=== PATIENT | female | born 1930 | race Caucasian/White ===

== ENCOUNTER 2021-01-04 09:33 | Inpatient (IN) ==
--- NOTE | 2021-01-04 09:45 | Emergency Department Note ---
Neuro HPI General Chief Complaint: Neuro Symptoms/Deficit Stated Complaint: aphasia and burping Time Seen by Provider: 01/04/21 09:36 Source: patient Mode of arrival: wheelchair Limitations: language barrier History of Present Illness HPI Narrative: 89-year-old female presents from [facility] [place] assisted living facility via wheelchair chief complaint of difficulty speaking. Patient had difficulty speaking for the last 2 days actually per the patient's daughter who is here at the bedside. The patient noticed it 2 days ago and called the primary doctor who is not able to get the patient [facility] Patient had previous strokes and TIA before. She is on any blood thinners. She not had any fevers chills chest pain shortness of breath no vomiting no diarrhea. No known trauma. Patient has been vaccinated against COVID-19. Patient is having word finding difficulty and mildly slurred speech. No other deficits noted. Related Data Home Medications Medication Instructions Recorded Confirmed cetirizine [Zyrtec] 10 mg PO DAILY 07/01/15 11/30/20 aspirin 81 mg tablet 81 mg PO QDAY 08/22/20 11/30/20 omeprazole 20 mg capsule,delayed 20 mg PO ONCE PRN cap 08/22/20 11/30/20 release fluoxetine 20 mg capsule 40 mg PO QDAY cap 10/05/20 11/30/20 vitamins A,C,M-edfo-wgpoey 14,320 1 cap PO BID 10/05/20 11/30/20 unit-226 mg-200 unit capsule montelukast 10 mg tablet 10 mg PO QHS 10/19/20 11/30/20 acetaminophen 500 mg tablet 500 mg PO Q6H PRN tab 11/30/20 diclofenac sodium 1 % topical gel 2 g TOPICAL QID PRN 11/30/20 11/30/20 nystatin 100,000 unit/gram topical 1 applic TOPICAL BID PRN 11/30/20 11/30/20 powder propranolol 20 mg tablet 20 mg PO HS tab 11/30/20 11/30/20 Previous Rx's Medication Instructions Recorded colchicine 0.6 mg tablet 0.6 mg PO ONCE PRN #9 tab 09/20/20 tramadol 50 mg tablet 50 mg PO QDAY PRN #20 tab 09/21/20 losartan 100 mg tablet 100 mg PO QDAY #90 tab 10/03/20 oxybutynin chloride 5 mg tablet 5 mg PO BID #60 tab 11/16/20 gabapentin 100 mg capsule 200 mg PO QHS #60 cap 11/21/20 allopurinol 300 mg tablet 150 mg PO QDAY #45 tab 12/25/20 nitrofurantoin macrocrystal 100 mg 100 mg PO BID 5 Days #10 cap 12/27/20 capsule Allergies Allergy/AdvReac Type Severity Reaction Status Date / Time cephalexin [From Keflex] Allergy Unknown Facial Verified 11/30/20 09:38 edema enalaprilat [From Vasotec] Allergy Unknown Facial Verified 11/30/20 09:38 edema morphine Allergy Unknown Itching Verified 11/30/20 09:38 with rash nifedipine [From Procardia] Allergy Unknown General Verified 11/30/20 09:38 edema Penicillins Allergy Unknown Facial Verified 11/30/20 09:38 edema sulfamethoxazole Allergy Unknown Throat Verified 11/30/20 09:38 [From Septra] edema trimethoprim [From Septra] Allergy Unknown Throat Verified 11/30/20 09:38 edema vancomycin Allergy Unknown Redneck Verified 11/30/20 09:38 syndrome Review of Systems ROS ROS Narrative: Narrative: All systems ED: reviewed and negative except as stated. Constitutional: Denies fever, chills and sweats Eyes: Denies vision change ENT ED: Denies throat pain and congestion Cardiovascular: Denies chest pain Respiratory: Denies shortness of breath and cough Gastrointestinal: Denies abdominal pain, vomiting and diarrhea Musculoskeletal: Denies back pain and joint pain Integumentary: Denies rash Neurological: Reports as per HPI Psychiatric: Denies anxiety, suicidal thoughts and homicidal thoughts Endocrine: Denies polydipsia and polyuria Hematological/Lymphatic: Denies easy bleeding and easy bruising PFSH Narrative Patient History Narrative: Narrative: Medical/Surgical/Family History All Active Problems (Updated 01/04/21 @ 13:15 by Jairon Ma MD) Anemia (Chronic) Postoperative pain of extremity (Chronic) Essential tremor (Chronic) Hypertension (Chronic) Arthritis of neck (Chronic) Arthritis of low back (Chronic) Gout (Chronic) Asthma (Chronic) RLS (restless legs syndrome) (Chronic) Stress incontinence (Chronic) Depression (Chronic) History of TIA (transient ischemic attack) (Chronic) Gouty tophus (Chronic) Body mass index between 30-39, adult (Chronic) Neuropathy (Chronic) Essential hypertension (Chronic) Osteopenia (Chronic) Urinary incontinence (Chronic) Recurrent falls (Chronic) Difficulty swallowing (Chronic) Pain, joint, shoulder, left (Chronic) Impacted cerumen of both ears (Chronic) Frail elderly (Chronic) Adhesive capsulitis of left shoulder (Chronic) Anxiety with depression (Chronic) Lung disease (Chronic) Multiple food allergies (Chronic) Seasonal allergies (Chronic) Eosinophilia (Acute) CKD stage G3b/A1, GFR 30-44 and albumin creatinine ratio <30 mg/g (Chronic) Left-sided weakness (Chronic) Expressive aphasia (Acute) Dehydration (Acute) UTI (urinary tract infection) (Acute) Medical History Adhesive capsulitis of left shoulder Anemia Anxiety with depression Arthritis of low back Arthritis of neck Asthma Body mass index between 30-39, adult Depression Difficulty swallowing Essential hypertension Essential tremor Frail elderly Gastroenteritis Gout Gouty tophus History of TIA (transient ischemic attack) X3 with mild left-sided motor deficit Hypertension Impacted cerumen of both ears Left-sided weakness d/t TIA hx UE/LE Lung disease Multiple food allergies Neuropathy Osteopenia Pain, joint, shoulder, left Postoperative pain of extremity Recurrent falls RLS (restless legs syndrome) Seasonal allergies Stress incontinence Urinary incontinence Urinary tract infection Surgical History History of basal cell carcinoma (BCC) excision (~2008) L-side nose History of bladder suspension procedure 1968 & 1996 History of carpal tunnel surgery of left wrist (~2002) History of cataract surgery (~2002) History of eye surgery (~2017) R-Eye Iris peel History of foot surgery (~2012) Fracture 4 toes R-foot History of gastric stapling (~1979) History of hand surgery (~2017) R-Index Finger Torus History of hernia surgery History of hysterectomy (~1968) History of laminectomy (~1992) History of left knee replacement (~2003) History of removal of cyst (~2008) Synovial cyst R-wrist History of right shoulder replacement (~1998) History of shoulder surgery (~2015) L-shoulder Delta Xtend History of surgery (~2000) Gall Bladder/[place] wrap stomach History of tonsillectomy (~1979) History of total right knee replacement (~2011) History of tubal ligation (~7) History of vein stripping (~1967) Family History Other No pertinent family history Social History Smoking Status: Never smoker Alcohol Intake Frequency: a few times a month Substance Use: does not use Exam Narrative Narrative: Vital Signs reviewed. Constitutional: Awake alert no acute distress well-nourished well-developed Head: Normocephalic, atraumatic Eyes: PERRLA, EOMI, no conjunctivitis Ear: Normal canals and TM's Oropharynx: moist oral mucosa, no edema, no erythema, no exudate Neck: Supple, no lymphadenopathy, no JVD Lungs: Breathing unlabored, lungs clear Cardiac: Regular rate and rhythm, normal distal pulses, GI: Soft nontender nondistended no guarding no rebound Musculoskeletal: No tenderness, no deformities, no edema, full range of motion Back: no CVA or midline tenderness Neuro: Awake alert, speech mild word finding difficulty, speech is intelligible and slow and very deliberate, moves all extremities, nihss = 2 Psychiatric: Normal mood and affect Skin: Warm dry no rash, cap refill less than 2 seconds General Limitations: language barrier Course Consultations Consultation #1: CT head results discussed with radiologist Dr. Ferro showing no acute intracranial process. Time: 09:49 Consultation #2: As discussed with neurologist, Dr. Chery, who recommended an MRI to see the patient as the family had an acute stroke or whether this could be a manifestation from her previous stroke that is brought on by metabolic derangement or urinary tract infection. Time: 13:40 Consultation #3: Case discussed with hospitalist, Dr. Troncoso who agrees admit patient. Time: 14:58 Vital Signs Vital signs: Vital Signs Temperature 98.2 F 01/04/21 09:34 Pulse Rate 78 01/04/21 09:34 Respiratory Rate 16 01/04/21 09:34 Blood Pressure 114/50 01/04/21 09:34 Pulse Oximetry (%) 91 01/04/21 09:34 Temperature 98.2 F 01/04/21 14:22 Pulse Rate 64 01/04/21 14:22 Respiratory Rate 19 01/04/21 14:22 Blood Pressure 118/72 01/04/21 14:22 Pulse Oximetry (%) 97 01/04/21 14:22 MDM MDM Narrative Medical decision making narrative: 89-year female presents with expressive aphasia mild dysarthria present for 2 days. Patient is out of the window for any thrombolytics. CT brain shows no acute intracranial process. Patient has prior TIA/stroke. BC is unremarkable. CMP notable for BUN 29 creatinine 1.2 patient just any a component of dehydration fibrillation. Patient recently diagnosed with UTI and urinalysis shows that she does still have a urinary tract infection. With X presence of aphasia and mild dysarthria presentation consistent with stroke. Symptoms have been present for 2 days and as patient is not a candidate for any thrombolytics or acute endovascular intervention. Case discussed with neurologist who recommended an MRI of the brain to see if there is an acute stroke. If there is not an acute stroke then symptoms may be related to metabolic derangement and/or UTI manifesting with neurologic symptoms. Case discussed with Dr. Troncoso hospitalist who agrees to admit flavia ent. Differential Diagnosis Differential Diagnosis: Stroke, intracranial lesion, metabolic arrangement, UTI Lab Data Result diagrams: 01/04/21 09:51 01/04/21 09:51 Labs: Lab Results 01/04/21 01/04/21 01/04/21 Range/Units 09:51 09:51 09:51 WBC 6.6 (4.5-11.0) K/mcL RBC 3.62 (3.59-5.38) M/mcL Hgb 11.7 (11.2-15.7) g/dL Hct 35.4 (34.1-44.9) % MCV 97.8 (80.0-100.0) fL MCH 32.3 (26.0-34.0) pg MCHC 33.1 (31.0-36.0) g/dL RDW 13.4 (11.5-14.5) % Plt Count 189 (140-440) K/mcL MPV 10.0 (7.4-10.4) fL Neut % (Auto) 56.8 (38.0-78.0) % Lymph % (Auto) 23.2 (15.5-49.0) % Arthur % (Auto) 11.9 (1.0-12.0) % Eos % (Auto) 7.0 (0.0-7.0) % Baso % (Auto) 1.1 (0.0-2.0) % Lymph # (Auto) 1.52 (1.50-4.80) K/mcL Arthur # (Auto) 0.78 (0.10-0.90) K/mcL Eos # (Auto) 0.46 (0.00-0.70) K/mcL Baso # (Auto) 0.07 (0.00-0.30) K/mcL Absolute Neutrophils 3.72 (1.80-8.00) K/mcL POC PT 12.2 (11.9-14.5) sec PT 13.5 (11.9-14.5) sec POC INR 1.0 (0.8-1.2) INR 1.0 (0.9-1.1) APTT 27.8 (20.0-37.0) sec Sodium 135 (133-145) mmol/L Potassium 5.0 (3.3-5.1) mmol/L Chloride 101 (96-108) mmol/L Carbon Dioxide 25 (22-30) mmol/L Anion Gap 9.0 (8.0-16.0) BUN 29 H (8-23) mg/dL Creatinine 1.2 H (0.6-1.1) mg/dL POC Creatinine 1.3 H (0.6-1.2) mg/dL GFR Calculation 40 Glucose 82 (70-105) mg/dL Calcium 8.9 (8.6-10.4) mg/dL Total Bilirubin 0.3 (0.1-1.0) mg/dL AST 25 (<32) U/L ALT 15 (<40) U/L Alkaline Phosphatase 117 (39-117) U/L Troponin T (<0.03) ng/mL Total Protein 6.6 (5.9-8.4) gm/dL Albumin 3.6 (3.2-5.2) gm/dL Globulin 3.0 (2.2-3.7) gm/dL Albumin/Globulin Ratio 1.2 (1.0-2.3) Urine Color Urine Appearance (Clear) Urine pH (5.0-9.0) Ur Specific [place] (1.000-1.035) Urine Protein (Negative) mg/dL Urine Glucose (UA) (Negative) mg/dL Urine Ketones (Negative) mg/dL Urine Occult Blood (Negative) mg/dL Urine Nitrate (Negative) Urine Bilirubin (Negative) mg/dL Urine Urobilinogen mg/dL Ur Leukocyte Esterase (Negative) /ug Urine RBC (0-3) /hpf Urine WBC (0-4) /hpf Ur Squamous Epith Cells (0-4) /hpf Urine Bacteria (0) /hpf Ur Culture Indicated? 01/04/21 01/04/21 Range/Units 09:51 11:53 WBC (4.5-11.0) K/mcL RBC (3.59-5.38) M/mcL Hgb (11.2-15.7) g/dL Hct (34.1-44.9) % MCV (80.0-100.0) fL MCH (26.0-34.0) pg MCHC (31.0-36.0) g/dL RDW (11.5-14.5) % Plt Count (140-440) K/mcL MPV (7.4-10.4) fL Neut % (Auto) (38.0-78.0) % Lymph % (Auto) (15.5-49.0) % Arthur % (Auto) (1.0-12.0) % Eos % (Auto) (0.0-7.0) % Baso % (Auto) (0.0-2.0) % Lymph # (Auto) (1.50-4.80) K/mcL Arthur # (Auto) (0.10-0.90) K/mcL Eos # (Auto) (0.00-0.70) K/mcL Baso # (Auto) (0.00-0.30) K/mcL Absolute Neutrophils (1.80-8.00) K/mcL POC PT (11.9-14.5) sec PT (11.9-14.5) sec POC INR (0.8-1.2) INR (0.9-1.1) APTT (20.0-37.0) sec Sodium (133-145) mmol/L Potassium (3.3-5.1) mmol/L Chloride (96-108) mmol/L Carbon Dioxide (22-30) mmol/L Anion Gap (8.0-16.0) BUN (8-23) mg/dL Creatinine (0.6-1.1) mg/dL POC Creatinine (0.6-1.2) mg/dL GFR Calculation Glucose (70-105) mg/dL Calcium (8.6-10.4) mg/dL Total Bilirubin (0.1-1.0) mg/dL AST (<32) U/L ALT (<40) U/L Alkaline Phosphatase (39-117) U/L Troponin T < 0.01 (<0.03) ng/mL Total Protein (5.9-8.4) gm/dL Albumin (3.2-5.2) gm/dL Globulin (2.2-3.7) gm/dL Albumin/Globulin Ratio (1.0-2.3) Urine Color Yellow Urine Appearance Hazy A (Clear) Urine pH 6.0 (5.0-9.0) Ur Specific [place] 1.009 (1.000-1.035) Urine Protein Negative (Negative) mg/dL Urine Glucose (UA) Negative (Negative) mg/dL Urine Ketones Negative (Negative) mg/dL Urine Occult Blood Negative (Negative) mg/dL Urine Nitrate Pos A (Negative) Urine Bilirubin Negative (Negative) mg/dL Urine Urobilinogen Negative mg/dL Ur Leukocyte Esterase 500 A (Negative) /ug Urine RBC 2 (0-3) /hpf Urine WBC 88 H (0-4) /hpf Ur Squamous Epith Cells 0 (0-4) /hpf Urine Bacteria Few A (0) /hpf Ur Culture Indicated? yes EKG Data EKG #1: EKG attestation: Yes I reviewed and interpreted this EKG. and Yes There are no EKG findings of acute coronary syndrome EKG results narrative: EKG performed at 9:46 AM shows sinus rhythm rate of 71 normal axis normal intervals no ectopy no acute ST changes Discharge Plan Patient/Caregiver Discharge Instructions Pt seen by INFECTION CONTROL NURSE/PA only: No Clinical Impression: Expressive aphasia, Dehydration, UTI (urinary tract infection) Patient Disposition: Xfer As Inpt ([facility]) Condition: Fair Follow up with: Tramaine Del Angel MD [Primary Care Provider] - Prescriptions: No Action colchicine [Colcrys] 0.6 mg tablet 0.6 mg PO ONCE PRN (Reason: gout flare) Qty: 9 RF: 1 tramadol 50 mg tablet 50 mg PO QDAY PRN (Reason: pain) Qty: 20 RF: 0 losartan 100 mg tablet 100 mg PO QDAY Qty: 90 RF: 0 oxybutynin chloride 5 mg tablet 5 mg PO BID Qty: 60 RF: 2 gabapentin 100 mg capsule 200 mg PO QHS Qty: 60 RF: 1 allopurinol 300 mg tablet 150 mg PO QDAY Qty: 45 RF: 0 nitrofurantoin macrocrystal 100 mg capsule 100 mg PO BID 5 Days Qty: 10 RF: 0 nystatin 100,000 unit/gram powder 1 applic topical BID PRNRF: 0 acetaminophen [Tylenol Extra Strength] 500 mg tablet 500 mg PO Q6H PRN (Reason: fever or pain) RF: 0 diclofenac sodium 1 % gel 2 g topical QID PRNRF: 0 montelukast 10 mg tablet 10 mg PO QHS RF: 0 aspirin 81 mg tablet 81 mg PO QDAY RF: 0 omeprazole 20 mg capsule,delayed release(DR/EC) 20 mg PO ONCE PRNRF: 0 fluoxetine 20 mg capsule 40 mg PO QDAY RF: 0 PreserVision AREDS 14,320-226-200 [id number]-[id number] capsule 1 cap PO BID RF: 0 propranolol 20 mg tablet 20 mg PO HS RF: 0 cetirizine [Zyrtec] 10 MG capsule 10 mg PO DAILY RF: 0
--- NOTE | 2021-01-04 09:57 | Cat Scan Report ---
History: Acute stroke symptoms with aphasia TECHNIQUE: The brain was imaged without contrast in axial plane at 2.5 mm intervals. Radiation exposure was limited using dose reduction technology. FINDINGS: There is no hemorrhage. No infarct is detected. There are age-related degenerative changes with patchy areas of decreased attenuation in the white matter in the frontal and parietal lobes. These have progressed since the time of the prior brain MRI done on 01/02/15. There is mild atrophy, most apparent in the frontal and temporal lobes. There are small physiologic calcifications in the globus pallidus bilaterally. There are also coarse calcifications along the free edge of the tentorium posterior and lateral to the midbrain. These are chronic stable findings. There are calcified plaques in the vertebral arteries and carotid arteries at the skull base bilaterally. The right maxillary sinus has become opacified. The inspissated material within the sinus contains some calcium. This is new since the prior head CT done on 07/01/15 and probably relates to chronic sinusitis or polyposis. IMPRESSION: Age-related degenerative changes in the brain and no acute abnormality Dr. Ma was called with report Interpreted and Authenticated by: Fabio Ferro 01/04/21
[2021-01-04 10:10] LABS: POC Pro Time 12.2 sec (11.9-14.5)
[2021-01-04 10:11] LABS: POC Creatinine 1.3 mg/dL (0.6-1.2)
[2021-01-04 10:50] LABS: Basophils # (Auto) 0.07 K/mcL (0.00-0.30); Basophils % (Auto) 1.1 % (0.0-2.0); Eosinophils # (Auto) 0.46 K/mcL (0.00-0.70); Hematocrit 35.4 % (34.1-44.9); Hemoglobin 11.7 g/dL (11.2-15.7); Lymphocytes # (Auto) 1.52 K/mcL (1.50-4.80); Lymphocytes % (Auto) 23.2 % (15.5-49.0); Mean Cell Volume 97.8 fL (80.0-100.0); Mean Corpuscular HGB Conc 33.1 g/dL (31.0-36.0); Monocytes # (Auto) 0.78 K/mcL (0.10-0.90); Monocytes % (Auto) 11.9 % (1.0-12.0); Neutrophils % (Auto) 56.8 % (38.0-78.0); Platelet Count 189 K/mcL (140-440); RBC 3.62 M/mcL (3.59-5.38); Red Cell Distribution Width 13.4 % (11.5-14.5); WBC 6.6 K/mcL (4.5-11.0)
[2021-01-04 11:13] LABS: ALT/SGPT 15 U/L (<40); AST/SGOT 25 U/L (<32); Albumin 3.6 gm/dL (3.2-5.2); Albumin/Globulin Ratio 1.2 (1.0-2.3); Alkaline Phosphatase 117 U/L (39-117); Bilirubin,Total 0.3 mg/dL (0.1-1.0); Blood Urea Nitrogen 29 mg/dL (8-23); Calcium 8.9 mg/dL (8.6-10.4); Carbon Dioxide 25 mmol/L (22-30); Chloride 101 mmol/L (96-108); Glomerular Filtration Rate 40; Glucose 82 mg/dL (70-105)
[2021-01-04 11:29] LABS: Partial Thromboplastin Time 27.8 sec (20.0-37.0); Prothrombin Time 13.5 sec (11.9-14.5)
[2021-01-04 12:38] LABS: Appearance,Urine HAZY (Clear); Bacteria,Urine FEW /hpf (0); Bilirubin,Urine Negative (Negative); Color,Urine YELLOW; Culture Indicated,Urine yes; Glucose,Urine (UA) Negative (Negative); Ketones,Urine Negative (Negative); Leukocyte Esterase,Urine 500 /ug (Negative); Nitrate,Urine POS (Negative); Protein,Urine Negative (Negative); Specific Gravity,Urine 1.009 (1.000-1.035); Urine Blood Negative (Negative); Urine RBC 2 /hpf (0-3); Urine Squamous Epithelial Cell 0 /hpf (0-4); Urine WBC 88 /hpf (0-4); Urobilinogen,Urine Negative
--- NOTE | 2021-01-04 14:58 | Magnetic Resonance Report ---
History: Acute stroke symptoms with aphasia TECHNIQUE: Stroke protocol was performed. FINDINGS: There is no acute infarct, hemorrhage or mass. There is mild white matter disease with patchy areas of increased signal in the abel radiata and centrum semiovale in the frontal and parietal lobes. Lateral to the upper body of the right lateral ventricle, in the posterior right frontal lobe there is a 4 x 7 mm white matter lesion which has mildly increased signal on both diffusion and ADC map. It was also present on a prior MRI on 01/02/15 but is more apparent on today's study. This is on the side opposite of the patient's symptoms. There is mild generalized atrophy. Ventricles are normal in size. No abnormal extra-axial fluid collection is present. IMPRESSION: No evidence of an acute infarct Mild white matter disease in the frontal and parietal lobes bilaterally. This is due to age-related white matter ischemia or degeneration. Dr. Ma was called with the report Interpreted and Authenticated by: Fabio Ferro 01/04/21
--- NOTE | 2021-01-04 15:50 | Internal Med History&Physical ---
HPI History of Present Illness Patient information: Note initiated : 01/04/21 at 3:38 pm Service Date, if different from initiated Date: [] Patient: Steff Arrington a 89 y/o F admitted on for aphasia and burping. Chief Complaint: [] History of present illness: Ms. Arrington is a 89 year old F patient sent in from [facility] by care givers for aphasia and burping. Patient have difficulty talking full sentences and felt this been going on for couple days. Patient does have a history of TIAs. Case was discussed with stroke neurologist who recommended MRI as the CT did not show anything acute. Per discussion with Dr. Darling, he stated stroke n eurologist recommended continuing aspirin as opposed to switching antiplatelets if the MRI was negative and that the stroke neurologist that if negative could be related to metabolic derangement with UTI or manifestation of her old stroke. Patient diagnosed with UTI in the ED. Patient has headache but otherwise no complaints, no chest pain shortness of breath fever chills. Daughter is at bedside and states patient has a hard time expressing himself because she frequently burps or hiccups. Patient could not tell me whether it felt more like a hiccup or a burp. Patient did have an esophageal dilatation about 3 years ago in [place], details of specific diagnosis unknown. Review of Systems: Pertinent positives as above. Denies fever/chills/nausea/vomiting/chest or abdominal pain/cough/dyspnea/diarrhea. Many 10 point review of system reviewed negative PFSH PFSH All Active Problems (Updated 01/04/21 @ 13:15 by Jairon Ma MD) Anemia (Chronic) Postoperative pain of extremity (Chronic) Essential tremor (Chronic) Hypertension (Chronic) Arthritis of neck (Chronic) Arthritis of low back (Chronic) Gout (Chronic) Asthma (Chronic) RLS (restless legs syndrome) (Chronic) Stress incontinence (Chronic) Depression (Chronic) History of TIA (transient ischemic attack) (Chronic) Gouty tophus (Chronic) Body mass index between 30-39, adult (Chronic) Neuropathy (Chronic) Essential hypertension (Chronic) Osteopenia (Chronic) Urinary incontinence (Chronic) Recurrent falls (Chronic) Difficulty swallowing (Chronic) Pain, joint, shoulder, left (Chronic) Impacted cerumen of both ears (Chronic) Frail elderly (Chronic) Adhesive capsulitis of left shoulder (Chronic) Anxiety with depression (Chronic) Lung disease (Chronic) Multiple food allergies (Chronic) Seasonal allergies (Chronic) Eosinophilia (Acute) CKD stage G3b/A1, GFR 30-44 and albumin creatinine ratio <30 mg/g (Chronic) Left-sided weakness (Chronic) Expressive aphasia (Acute) Dehydration (Acute) UTI (urinary tract infection) (Acute) Medical History Adhesive capsulitis of left shoulder Anemia Anxiety with depression Arthritis of low back Arthritis of neck Asthma Body mass index between 30-39, adult Depression Difficulty swallowing Essential hypertension Essential tremor Frail elderly Gastroenteritis Gout Gouty tophus History of TIA (transient ischemic attack) X3 with mild left-sided motor deficit Hypertension Impacted cerumen of both ears Left-sided weakness d/t TIA hx UE/LE Lung disease Multiple food allergies Neuropathy Osteopenia Pain, joint, shoulder, left Postoperative pain of extremity Recurrent falls RLS (restless legs syndrome) Seasonal allergies Stress incontinence Urinary incontinence Urinary tract infection Surgical History History of basal cell carcinoma (BCC) excision (~2008) L-side nose History of bladder suspension procedure 1968 & 1996 History of carpal tunnel surgery of left wrist (~2002) History of cataract surgery (~2002) History of eye surgery (~2017) R-Eye Iris peel History of foot surgery (~2012) Fracture 4 toes R-foot History of gastric stapling (~1979) History of hand surgery (~2017) R-Index Finger Torus History of hernia surgery History of hysterectomy (~1968) History of laminectomy (~1992) History of left knee replacement (~2003) History of removal of cyst (~2008) Synovial cyst R-wrist History of right shoulder replacement (~1998) History of shoulder surgery (~2015) L-shoulder Delta Xtend History of surgery (~2000) Gall Bladder/[place] wrap stomach History of tonsillectomy (~1979) History of total right knee replacement (~2011) History of tubal ligation (~1956) History of vein stripping (~1967) Family History Other No pertinent family history Social History (Updated 11/30/20 @ 09:35 by Philomena Wagner RN) marital status: occupational status: retired smoking status: Never smoker alcohol intake frequency: a few times a month substance use type: does not use MEDS/ALLERGIES Home Medications and Allergies Home Medications Medication Instructions Recorded Confirmed Type cetirizine [Zyrtec] 10 mg PO DAILY 07/01/15 11/30/20 History aspirin 81 mg tablet 81 mg PO QDAY 08/22/20 11/30/20 History omeprazole 20 mg capsule,delayed 20 mg PO ONCE PRN cap 08/22/20 11/30/20 History release colchicine 0.6 mg tablet 0.6 mg PO ONCE PRN #9 tab 09/20/20 11/30/20 Rx tramadol 50 mg tablet 50 mg PO QDAY PRN #20 tab 09/21/20 11/30/20 Rx losartan 100 mg tablet 100 mg PO QDAY #90 tab 10/03/20 11/30/20 Rx fluoxetine 20 mg capsule 40 mg PO QDAY cap 10/05/20 11/30/20 History vitamins A,C,R-vfog-aerfmd 14,320 1 cap PO BID 10/05/20 11/30/20 History unit-226 mg-200 unit capsule montelukast 10 mg tablet 10 mg PO QHS 10/19/20 11/30/20 History oxybutynin chloride 5 mg tablet 5 mg PO BID #60 tab 11/16/20 11/30/20 Rx gabapentin 100 mg capsule 200 mg PO QHS #60 cap 11/21/20 11/30/20 Rx acetaminophen 500 mg tablet 500 mg PO Q6H PRN tab 11/30/20 History diclofenac sodium 1 % topical gel 2 g TOPICAL QID PRN 11/30/20 11/30/20 History nystatin 100,000 unit/gram topical 1 applic TOPICAL BID PRN 11/30/20 11/30/20 History powder propranolol 20 mg tablet 20 mg PO HS tab 11/30/20 11/30/20 History allopurinol 300 mg tablet 150 mg PO QDAY #45 tab 12/25/20 Rx nitrofurantoin macrocrystal 100 mg 100 mg PO BID 5 Days #10 cap 12/27/20 Rx capsule Allergies Allergy/AdvReac Type Severity Reaction Status Date / Time cephalexin [From Keflex] Allergy Unknown Facial Verified 11/30/20 09:38 edema enalaprilat [From Vasotec] Allergy Unknown Facial Verified 11/30/20 09:38 edema morphine Allergy Unknown Itching Verified 11/30/20 09:38 with rash nifedipine [From Procardia] Allergy Unknown General Verified 11/30/20 09:38 edema Penicillins Allergy Unknown Facial Verified 11/30/20 09:38 edema sulfamethoxazole Allergy Unknown Throat Verified 11/30/20 09:38 [From Septra] edema trimethoprim [From Septra] Allergy Unknown Throat Verified 11/30/20 09:38 edema vancomycin Allergy Unknown [place] Verified 11/30/20 09:38 syndrome EXAM Constitutional Vitals: Temp Pulse Resp BP Pulse Ox 98.2 F 71 19 147/60 95 01/04/21 14:22 01/04/21 15:03 01/04/21 14:22 01/04/21 15:03 01/04/21 15:03 Exam: General: Alert, Awake, No acute Distress, obese Eyes/N/T: EOMI, PERRL, dry MM Head/Neck: neck supple, normocephalic atraumatic CV: RRR, No murmurs, normal s1/s2 Pulm: Clear b/l, no wheezing/rhonchi/rales Abd: soft, nontender, +BS x4 Ext: no clubbing/cyanosis/edema Neuro: Alert, no pronator drift, symmetrical strength symmetrical strength b/l upper/lower, sensations intact b/l upper/lower. Symmetrical face. Comprehension intact. She is able to express herself to me although slowly and is interrupted frequently by what appears to be a hiccup versus burp. Skin: warm/dry DATA Data Completed and Pending Labs: Labs from last 24 hours 01/04/21 01/04/21 01/04/21 11:53 09:51 09:51 WBC RBC Hgb Hct MCV MCH MCHC RDW Plt Count MPV Neut % (Auto) Lymph % (Auto) [place] % (Auto) Eos % (Auto) Baso % (Auto) Lymph # (Auto) [place] # (Auto) Eos # (Auto) Baso # (Auto) Absolute Neutrophils POC PT PT POC INR INR APTT Sodium 135 Potassium 5.0 Chloride 101 Carbon Dioxide 25 Anion Gap 9.0 BUN 29 H Creatinine 1.2 H POC Creatinine 1.3 H GFR Calculation 40 Glucose 82 Calcium 8.9 Total Bilirubin 0.3 AST 25 ALT 15 Alkaline Phosphatase 117 Troponin T < 0.01 Total Protein 6.6 Albumin 3.6 Globulin 3.0 Albumin/Globulin Ratio 1.2 Urine Color Yellow Urine Appearance Hazy A Urine pH 6.0 Ur Specific Start 1.009 Urine Protein Negative Urine Glucose (UA) Negative Urine Ketones Negative Urine Occult Blood Negative Urine Nitrate Pos A Urine Bilirubin Negative Urine Urobilinogen Negative Ur Leukocyte Esterase 500 A Urine RBC 2 Urine WBC 88 H Ur Squamous Epith Cells 0 Urine Bacteria Few A Ur Culture Indicated? yes 01/04/21 01/04/21 09:51 09:51 WBC 6.6 RBC 3.62 Hgb 11.7 Hct 35.4 MCV 97.8 MCH 32.3 MCHC 33.1 RDW 13.4 Plt Count 189 MPV 10.0 Neut % (Auto) 56.8 Lymph % (Auto) 23.2 [place] % (Auto) 11.9 Eos % (Auto) 7.0 Baso % (Auto) 1.1 Lymph # (Auto) 1.52 [place] # (Auto) 0.78 Eos # (Auto) 0.46 Baso # (Auto) 0.07 Absolute Neutrophils 3.72 POC PT 12.2 PT 13.5 POC INR 1.0 INR 1.0 APTT 27.8 Sodium Potassium Chloride Carbon Dioxide Anion Gap BUN Creatinine POC Creatinine GFR Calculation Glucose Calcium Total Bilirubin AST ALT Alkaline Phosphatase Troponin T Total Protein Albumin Globulin Albumin/Globulin Ratio Urine Color Urine Appearance Urine pH Ur Specific Start Urine Protein Urine Glucose (UA) Urine Ketones Urine Occult Blood Urine Nitrate Urine Bilirubin Urine Urobilinogen Ur Leukocyte Esterase Urine RBC Urine WBC Ur Squamous Epith Cells Urine Bacteria Ur Culture Indicated? A/P Narrative A/P Narrative: A: *?Expressive aphasia (h/o TIA's) , appears to be improving: -case d/w with stroke neurologist, cont asa if MRI negative *hiccup vs burping: *UTI: *h/o eso dilatation: done in [place] 3-yrs ago* *CKD IIIb: *HTN: *GERD: *Depression/anxiety *Essential tremor: On propranolol * P: -carotid u/s, echo -check lipid panel -cont ASA/Statin -Levaquin pending - eval, consider barium swallow -Continue home losartan -Clarify and update home medications -PT/OT -ppx: Lovenox /home PPI DNR Time Spent With Patient Time: Total time spent is greater than 50% in coordination of care (as documented) at patient's floor/unit and/or counseling patient:
[2021-01-04] MEDS: LEVOFLOXACIN 750 MG/150 ML BAG IV SCH (16:26)
[2021-01-04] MEDS ORDERED: MAGNESIUM SULFATE 2 GM/50 ML BAG IV PRN (17:08)
[2021-01-04] MEDS ORDERED: POTASSIUM CHLORIDE 40 MEQ in DEXTROSE 5% IN WATER 500 ML IV PRN (17:08)
[2021-01-04] MEDS ORDERED: hydrALAZINE 20 MG/ML VIAL IV PRN (17:08)
[2021-01-04] MEDS ORDERED: POTASSIUM CHLORIDE 20 MEQ TABLET PO PRN ×2 (17:08)
[2021-01-04] MEDS ORDERED: SENNOSIDES 1 TABLET PO PRN (17:08)
[2021-01-04] MEDS ORDERED: IPRATROPIUM/ALBUTEROL 3 ML AMPUL.NEB NEB PRN (17:08)
[2021-01-04] MEDS ORDERED: LEVOFLOXACIN 750 MG/150 ML BAG IV SCH (17:08)
[2021-01-04] MEDS ORDERED: 0.9 % SODIUM CHLORIDE 1,000 ML IV SCH (17:08)
[2021-01-04] MEDS ORDERED: ACETAMINOPHEN 325 MG TABLET PO PRN (17:08)
[2021-01-04] MEDS ORDERED: METOCLOPRAMIDE 10 MG/2 ML VIAL IV ONE (17:08)
[2021-01-04] MEDS ORDERED: ONDANSETRON 4 MG/2 ML VIAL IV PRN (17:08)
[2021-01-04] MEDS: GABAPENTIN 100 MG CAPSULE PO SCH ×2 (17:45→21:57)
[2021-01-04] MEDS: SIMETHICONE 80 MG TAB.CHEW CHEWED SCH ×2 (17:45→21:57)
[2021-01-04 18:31] LABS: HDL Cholesterol 59 mg/dL (>40); LDL Cholesterol,Calculated 74 mg/dL (<100); Non-HDL Cholesterol 86 mg/dL (<130); Triglycerides 62 mg/dL (<150)
[2021-01-04] MEDS: 0.9 % SODIUM CHLORIDE 10 ML SYRINGE IV SCH (21:57)
[2021-01-04] MEDS: ATORVASTATIN 20 MG TABLET PO SCH (21:57)
[2021-01-04] MEDS: DOCUSATE SODIUM 100 MG CAPSULE PO SCH (21:57)
[2021-01-05] MEDS ORDERED: METOCLOPRAMIDE 10 MG/2 ML VIAL IV PRN
[2021-01-05] MEDS: 0.9 % SODIUM CHLORIDE 10 ML SYRINGE IV SCH ×3 (06:50→23:41)
[2021-01-05 07:02] LABS: ALT/SGPT 12 U/L (<40); AST/SGOT 22 U/L (<32); Albumin 2.8 gm/dL (3.2-5.2); Albumin/Globulin Ratio 1.1 (1.0-2.3); Alkaline Phosphatase 100 U/L (39-117); Bilirubin,Direct < 0.2 mg/dL (0-0.3); Bilirubin,Total 0.3 mg/dL (0.1-1.0); Blood Urea Nitrogen 24 mg/dL (8-23); Calcium 8.6 mg/dL (8.6-10.4); Carbon Dioxide 23 mmol/L (22-30); Chloride 107 mmol/L (96-108); Globulin 2.6 gm/dL (2.2-3.7); Glomerular Filtration Rate 44; Glucose 87 mg/dL (70-105); Lactate Dehydrogenase 166 U/L (135-225); Phosphorous 3.3 mg/dL (2.5-4.5); Triglycerides 86 mg/dL (<150); Uric Acid 3.9 mg/dL (2.5-8.0)
[2021-01-05] MEDS ORDERED: traMADol 50 MG TABLET PO PRN (07:35)
--- NOTE | 2021-01-05 07:39 | Internal Med Progress Note ---
SUBJECTIVE Subjective Patient information: Note initiated : 01/05/21 at 7:36 am Service Date, if different from initiated Date: [] Patient: Steff Arrington 89 y/o F admitted on 01/04/21 for aphasia and burping. Chief Complaint: [] Interval history: History of present illness: Ms. Arrington is a 89 year old F patient sent in from [facility] by care givers for aphasia and burping. Patient have difficulty talking full sentences and felt this been going on for couple days. Patient does have a history of TIAs. Case was discussed with stroke neurologist who recommended MRI as the CT did not show anything acute. Per discussion with Dr. Darling, he stated stroke neurologist recommended continuing aspirin as opposed to switching antiplatelets if the MRI was negative and that the stroke neurologist that if negative could be related to metabolic derangement with UTI or manifestation of her old stroke. Patient diagnosed with UTI in the ED. Patient has headache but otherwise no complaints, no chest pain shortness of breath fever chills. Daughter is at bedside and states patient has a hard time expressing himself because she frequently burps or hiccups. Patient could not tell me whether it felt more like a hiccup or a burp. Patient did have an esophageal dilatation about 3 years ago in [place], details of specific diagnosis unknown. 01/05 Patient slept all right and feeling a little better today. Not having the hiccups like she was yesterday, then having 1 or 2 throughout the morning. No overnight event or new complaints. Pending urine culture. Review of Systems: denies headache/fever/chills/nausea/vomiting/chest or abdominal pain/cough/dyspnea/diarrhea. Otherwise see above. Constitutional Vitals: Vital Signs Temp Pulse Resp BP Pulse Ox 98.9 F 88 16 108/52 90 01/05/21 00:01 01/05/21 02:02 01/05/21 02:02 01/05/21 02:02 01/05/21 02:02 Period Temp Pulse Resp BP Sys/M[place] Pulse Ox Last 24 Hr 98.2 F-98.9 F 60-89 10-22 87-175/50-116 82-98 Intake and Output 01/04/21 01/05/21 01/05/21 21:59 05:59 13:59 Intake Total 350 Output Total 700 300 Balance -350 -300 Weight 73.936 kg Intake & Output: Intake & Output 01/04/21 01/05/21 01/05/21 21:59 05:59 13:59 Intake Total 350 Output Total 700 300 Balance -350 -300 Weight 73.936 kg Intake: IV 150 Oral 200 Output: Void Amount 700 300 Other: Meal Dinner Percent of Meal Consumed 50% Urine Appearance Clear Cloudy Urine Color Straw Bright Yellow Urine Odor Strong Stool Size Moderate Stool Color Brown Stool Consistency Soft # Voids 1 # Bowel Movements 1 Exam: General: Alert, Awake, No acute Distress, obese Eyes/N/T: EOMI, Head/Neck: neck supple, CV: RRR, No murmurs, Pulm: Clear b/l, no wheezing/rhonchi/rales Abd: soft, nontender, +BS x4 Ext: no clubbing/cyanosis/edema Neuro: Alert, symmetrical strength symmetrical strength b/l upper/lower, s ensations intact b/l upper/lower. Symmetrical face. Comprehension intact. She is able to express herself to me although she does speak slowly. No hiccups noticed today. Skin: warm/dry OBJ DATA Labs CBC & Chem 7: 01/04/21 09:51 01/05/21 05:31 Labs: Abnormal Lab Results 01/05/21 01/04/21 01/04/21 05:31 11:53 09:51 BUN 24 H 29 H Creatinine 1.2 H POC Creatinine 1.3 H Total Protein 5.4 L Albumin 2.8 L Urine Appearance Hazy A Urine Nitrate Pos A Ur Leukocyte Esterase 500 A Urine WBC 88 H Urine Bacteria Few A Meds: Medications Acetaminophen (Acetaminophen 325 Mg Tablet) 650 mg PO Q6HP PRN PRN Reason: PAIN/FEVER > 101 Albuterol/Ipratropium (Ipratropium/Albuterol 3 Ml Ampul.Neb) 3 ml NEB Q4HP PRN PRN Reason: Shortness Of Breath Aspirin (Aspirin 81 Mg Tab.Chew) 81 mg PO DAILY [facility] Atorvastatin Calcium (Atorvastatin 20 Mg Tablet) 20 mg PO HS [facility] Last Admin: 01/04/21 21:57 Dose: 20 mg Documented by: Docusate Sodium (Docusate Sodium 100 Mg Capsule) 100 mg PO BID [facility] Last Admin: 01/04/21 21:57 Dose: Not Given Documented by: Enoxaparin Sodium (Enoxaparin 40 Mg/0.4 Ml Syringe) 40 mg SQ DAILY [facility] Gabapentin (Gabapentin 100 Mg Capsule) 100 mg PO TID [facility] Last Admin: 01/04/21 21:57 Dose: 100 mg Documented by: Hydralazine HCl (Hydralazine 20 Mg/Ml Vial) 0 mg IV Q2HP PRN PRN Reason: Hypertension Levofloxacin (Levaquin) 750 mg in 150 mls @ 100 mls/hr IV Q48H [facility] Last Infusion: 01/04/21 18:40 Dose: Infused Documented by: Potassium Chloride 40 meq/ (Dextrose) 520 mls @ 130 mls/hr IV UD PRN PRN Reason: Potassium < 3 Magnesium Sulfate (Magnesium Sulfate) 2 gm in 50 mls @ 50 mls/hr IV UD PRN PRN Reason: Magnesium </= 1.6 Metoclopramide HCl (Metoclopramide 10 Mg/2 Ml Vial) 10 mg IV Q6HP PRN PRN Reason: Nausea And Vomiting Ondansetron HCl (Ondansetron 4 Mg/2 Ml Vial) 4 mg IV Q4HP PRN PRN Reason: Nausea And Vomiting Pantoprazole Sodium (Pantoprazole 40 Mg Tablet) 40 mg PO QAMAC [facility] Potassium Chloride (Potassium Chloride 20 Meq Tablet) 40 meq PO UD PRN PRN Reason: Potssium is 3-3.5 Potassium Chloride (Potassium Chloride 20 Meq Tablet) 40 meq PO UD PRN PRN Reason: Potassium < 3 Senna (Sennosides 1 Tablet) 2 tab PO DAILYP PRN PRN Reason: Constipation Simethicone (Simethicone 80 Mg Tab.Chew) [address] [facility] Stop: 01/05/21 12:31 Last Admin: 01/04/21 21:57 Dose: 80 mg Documented by: Sodium Chloride (0.9 % Sodium Chloride 10 Ml Syringe) 10 ml IV Q8 [facility] Last Admin: 01/05/21 06:50 Dose: Not Given Documented by: A/P Narrative A/P Narrative: A: *?Expressive aphasia (h/o TIA's) , appears to be improving: -case d/w with stroke neurologist, cont asa if MRI negative -e *hiccup vs burping: improved *UTI (GNP): *volume depletion: improved *h/o eso dilatation: done in [place] 3-yrs ago *CKD IIIb: *HTN: *GERD: *Depression/anxiety *Essential tremor: On propranolol * P: -carotid u/s, echo -cont ASA/Statin -Levaquin pending [facility] eval, consider barium swallow -Continue home losartan -PT/OT -ppx: Lovenox /home PPI DNR Time Spent With Patient Time: Total time spent is greater than 50% in coordination of care (as documented) at patient's floor/unit and/or counseling patient: QUALITY Stroke Onset of Symptoms Date: 01/02/21 Symptom Onset Unknown: No VTE Deep Vein Thrombosis/Pulmonary Embolism Present on Admission: No
[2021-01-05] MEDS ORDERED: COLCHICINE 0.6 MG CAPSULE PO PRN (07:47)
[2021-01-05] MEDS: PANTOPRAZOLE 40 MG TABLET PO SCH (08:12)
[2021-01-05] MEDS: ASPIRIN 81 MG TAB.CHEW PO SCH ×2 (08:47)
[2021-01-05] MEDS: DOCUSATE SODIUM 100 MG CAPSULE PO SCH ×2 (08:47→20:34)
[2021-01-05] MEDS: SIMETHICONE 80 MG TAB.CHEW CHEWED SCH ×2 (08:47→12:51)
[2021-01-05] MEDS: OXYBUTYNIN CHLORIDE 5 MG TABLET PO SCH ×2 (08:48→20:34)
[2021-01-05] MEDS: GABAPENTIN 100 MG CAPSULE PO SCH ×2 (08:49→20:33)
[2021-01-05] MEDS: ENOXAPARIN 40 MG/0.4 ML SYRINGE SQ SCH (08:49)
[2021-01-05] MEDS: ALLOPURINOL 300 MG TABLET PO SCH (08:50)
[2021-01-05] MEDS: LOSARTAN 50 MG TABLET PO SCH (08:55)
[2021-01-05] MEDS: FLUoxetine HCL 20 MG CAPSULE PO SCH (08:55)
[2021-01-05] MEDS ORDERED: GABAPENTIN 100 MG CAPSULE PO SCH (09:00)
--- NOTE | 2021-01-05 10:58 | Discharge Summary ---
Discharge Provider Provider Patient information: Note initiated : 01/05/21 at 10:57 am Service Date, if different from initiated Date: [] Patient: Steff Arrington 89 y/o F admitted on 01/04/21 for aphasia and burping. Chief Complaint: [] Date of admission: 01/04/21 16:55 Discharge date: 01/06/21 Primary care physician: Tramaine Del Angel MD Consults: 01/04/21 Consult to Physician [CONS] Stat Comment: Consulting Provider: Tyrell Troncoso Reason For Exam: Physician to Consult Discharge Meds Discharge Medications Home Medications aspirin 81 mg tablet 81 mg PO QDAY 08/22/20 [History Confirmed 01/04/21 Last Taken Unknown] omeprazole 20 mg capsule,delayed release 20 mg PO PRN PRN cap 08/22/20 [History Confirmed 01/05/21 Last Taken Unknown] losartan 100 mg tablet 100 mg PO QDAY #90 tab 10/03/20 [Rx Confirmed 01/04/21 Last Taken Unknown] fluoxetine 20 mg capsule 40 mg PO QDAY cap 10/05/20 [History Confirmed 01/04/21 Last Taken Unknown] vitamins A,C,V-nyvq-xdzacb 14,320 unit-226 mg-200 unit capsule 1 cap PO BID 10/05/20 [History Confirmed 01/05/21 Last Taken Unknown] montelukast 10 mg tablet 10 mg PO QHS 10/19/20 [History Confirmed 01/04/21 Last Taken Unknown] oxybutynin chloride 5 mg tablet 5 mg PO BID #60 tab 11/16/20 [Rx Confirmed 01/05/21 Last Taken Unknown] gabapentin 100 mg capsule 200 mg PO QHS #60 cap 11/21/20 [Rx Confirmed 01/04/21 Last Taken Unknown] acetaminophen 500 mg tablet 500 mg PO Q6H PRN tab 11/30/20 [History Confirmed 01/05/21 Last Taken Unknown] diclofenac sodium 1 % topical gel 2 g TOPICAL QID PRN 11/30/20 [History Confirmed 01/04/21 Last Taken Unknown] nystatin 100,000 unit/gram topical powder 1 applic TOPICAL BIDP PRN 11/30/20 [History Confirmed 01/05/21 Last Taken Unknown] propranolol 20 mg tablet 20 mg PO HS tab 11/30/20 [History Confirmed 01/05/21 Last Taken Unknown] allopurinol 300 mg tablet 150 mg PO QDAY #45 tab 12/25/20 [Rx Confirmed 01/04/21 Last Taken Unknown] colchicine [Colcrys] 0.6 mg PO PRN PRN 01/05/21 [History Confirmed 01/04/21 Last Taken Unknown] levofloxacin 250 mg PO Q24H #3 tab 01/05/21 [Rx Last Taken Unknown] tramadol 50 mg PO DAILYP PRN 01/05/21 [History Confirmed 01/05/21 Last Taken Unknown] COURSE Hospital Course Hospital course: Interval history: History of present illness: Ms. Arrington is a 89 year old F patient sent in from [facility] by care givers for aphasia and burping. Patient have difficulty talking full sentences and felt this been going on for couple days. Patient does have a history of TIAs. Case was discussed with stroke neurologist who recommended MRI as the CT did not show anything acute. Per discussion with Dr. Darling, he stated stroke neurologist recommended continuing aspirin as opposed to switching antiplatelets if the MRI was negative and that the stroke neurologist that if negative could be related to metabolic derangement with UTI or manifestation of her old stroke. Patient diagnosed with UTI in the ED. Patient has headache but otherwise no complaints, no chest pain shortness of breath fever chills. Daughter is at bedside and states patient has a hard time expressing himself because she frequently burps or hiccups. Patient could not tell me whether it felt more like a hiccup or a burp. Patient did have an esophageal dilatation about 3 years ago in [place], details of specific diagnosis unknown. 01/05 Patient slept all right and feeling a little better today. Not having the hiccups like she was yesterday, then having 1 or 2 throughout the morning. No overnight event or new complaints. Pending urine culture. 01/06 Patient doing well. Patient does have esophageal web and will need to be referred to gastroenterology for possible dilatation. A: *?Expressive aphasia (h/o TIA's) , appears to be improving: -case d/w with stroke neurologist, cont asa if MRI negative -e *hiccup vs burping: improved *UTI (GNB): *volume depletion: improved *h/o eso dilatation: done in [place] 3-yrs ago *CKD IIIb: *HTN: *GERD: *Depression/anxiety *Essential tremor: On propranolol *small esopahgeal web: f/u with GI Discharge diagnosis: Mild expressive aphasia hiccups UTI volume depletion Time Spent with Patient Time attestation: Total time spent providing and/or coordinating discharge services: Time spent: Greater than 30 minutes EXAM Constitutional Vitals: Temp Pulse Resp BP Pulse Ox 97.8 F 102 H 20 119/70 98 01/05/21 08:01 01/05/21 10:02 01/05/21 10:02 01/05/21 10:02 01/05/21 10:02 Discharge Data Data Completed and Pending Labs on day of discharge: Labs from last 24 hours 01/05/21 01/04/21 01/04/21 05:31 17:08 11:53 PT INR APTT Sodium 139 Potassium 4.9 Chloride 107 Carbon Dioxide 23 Anion Gap 9.0 BUN 24 H Creatinine 1.1 GFR Calculation 44 Glucose 87 Uric Acid 3.9 Calcium 8.6 Phosphorus 3.3 Magnesium 1.8 Total Bilirubin 0.3 Direct Bilirubin < 0.2 GGT 12 AST 22 ALT 12 Alkaline Phosphatase 100 Lactate Dehydrogenase 166 Troponin T Total Protein 5.4 L Albumin 2.8 L Globulin 2.6 Albumin/Globulin Ratio 1.1 Triglycerides 86 62 Cholesterol 145 LDL Cholesterol, Calc 74 Non-HDL Cholesterol 86 HDL Cholesterol 59 Urine Color Yellow Urine Appearance Hazy A Urine pH 6.0 Ur Specific Wed[place] 1.009 Urine Protein Negative Urine Glucose (UA) Negative Urine Ketones Negative Urine Occult Blood Negative Urine Nitrate Pos A Urine Bilirubin Negative Urine Urobilinogen Negative Ur Leukocyte Esterase 500 A Urine RBC 2 Urine WBC 88 H Ur Squamous Epith Cells 0 Urine Bacteria Few A Ur Culture Indicated? yes 01/04/21 01/04/21 01/04/21 09:51 09:51 09:51 PT 13.5 INR 1.0 APTT 27.8 Sodium 135 Potassium 5.0 Chloride 101 Carbon Dioxide 25 Anion Gap 9.0 BUN 29 H Creatinine 1.2 H GFR Calculation 40 Glucose 82 Uric Acid Calcium 8.9 Phosphorus Magnesium Total Bilirubin 0.3 Direct Bilirubin GGT AST 25 ALT 15 Alkaline Phosphatase 117 Lactate Dehydrogenase Troponin T < 0.01 Total Protein 6.6 Albumin 3.6 Globulin 3.0 Albumin/Globulin Ratio 1.2 Triglycerides Cholesterol LDL Cholesterol, Calc Non-HDL Cholesterol HDL Cholesterol Urine Color Urine Appearance Urine pH Ur Specific Wedron Urine Protein Urine Glucose (UA) Urine Ketones Urine Occult Blood Urine Nitrate Urine Bilirubin Urine Urobilinogen Ur Leukocyte Esterase Urine RBC Urine WBC Ur Squamous Epith Cells Urine Bacteria Ur Culture Indicated? Preliminary micro results at discharge 01/04/21 12:58 Urine Culture - Preliminary Urine - Clean Void Mid-Stream Gram negative bacillus Discharge Plan Patient/Caregiver Discharge Instructions Activity: increase activity as tolerated Diet: Regular Diet Activity Restrictions/Additional Instructions: Referral to see flat cutter in 3 to 14 days for esophageal web and possible esophageal dilation. Prescriptions: New levofloxacin 250 mg tablet 250 mg PO Q24H Qty: 3 RF: 0 Continued losartan 100 mg tablet 100 mg PO QDAY Qty: 90 RF: 0 oxybutynin chloride 5 mg tablet 5 mg PO BID Qty: 60 RF: 2 gabapentin 100 mg capsule 200 mg PO QHS Qty: 60 RF: 1 allopurinol 300 mg tablet 150 mg PO QDAY Qty: 45 RF: 0 nystatin 100,000 unit/gram powder 1 applic topical BIDP PRN (Reason: yeast) RF: 0 acetaminophen [Tylenol Extra Strength] 500 mg tablet 500 mg PO Q6H PRN (Reason: fever or pain) RF: 0 diclofenac sodium 1 % gel 2 g topical QID PRN (Reason: arthritis) RF: 0 montelukast 10 mg tablet 10 mg PO QHS RF: 0 aspirin 81 mg tablet 81 mg PO QDAY RF: 0 omeprazole 20 mg capsule,delayed release(DR/EC) 20 mg PO PRN PRN (Reason: Heartburn) RF: 0 fluoxetine 20 mg capsule 40 mg PO QDAY RF: 0 PreserVision AREDS 14,320-226-200 couh-uz-hijs capsule 1 cap PO BID RF: 0 propranolol 20 mg tablet 20 mg PO HS RF: 0 tramadol 50 mg tablet 50 mg PO DAILYP PRN (Reason: pain) RF: 0 colchicine [Colcrys] 0.6 mg tablet 0.6 mg PO PRN PRN (Reason: gout flare) RF: 0 Discontinued nitrofurantoin macrocrystal 100 mg capsule 100 mg PO BID 5 Days Qty: 10 RF: 0 Zyrtec 10 MG capsule 10 mg PO HS RF: 0 Follow Up Plan Follow up with: Tramaine Del Angel MD [Primary Care Provider] - Patient Disposition: Xfer Assisted Living Facility Prognosis: Fair Overall status at discharge: patient is progressing back to baseline Discharge Orders: Discharge Order (Routine); Ordered 01/06/21 Ordered By: Tyrell Troncoso [facility] VTE Deep Vein Thrombosis/Pulmonary Embolism Present on Admission: No
--- NOTE | 2021-01-05 12:00 | Ultrasound Report ---
CLINICAL INFORMATION: Transient ischemic attack COMPARISON: None. TECHNIQUE: Carotid arteries were imaged in sagittal and transverse planes using 5 mHz linear probe: Doppler, color, and 2D. FINDINGS: See worksheet by the technologist for velocities in PACS Please correlate with CTA CT Angiography or MRA MR Angiography if surgery is contemplated. There is small amount of mixed plaque in the carotid bifurcations bilaterally. Normal flow velocities are present in the common internal and external carotids. Both proximal common carotids are tortuous and there is also tortuosity of the distal left internal carotid. There is no evidence of stenosis thrombosis or dissection. Antegrade flow is present in both vertebral arteries. IMPRESSION: Mild atherosclerotic disease bilaterally and no evidence of stenosis Interpreted and Authenticated by: Fabio Ferro 01/05/21
--- NOTE | 2021-01-05 15:34 | XRay Report ---
HISTORY: Aphasia, burping, prior esophageal stricture which was dilated FINDINGS: Esophagus was examined in an upright position. Patient is extremely weak and could not tolerate standing for very long and she could not easily move. There is normal pharyngeal motility. There is no evidence of aspiration. There is a mucosal web in the upper cervical esophagus. There is mild dilatation of the hypopharynx above this web. Cervical esophagus is otherwise normal. The thoracic esophagus has normal distensibility. However, there is poor motility with numerous tertiary contractions. There is no stricture or mass. There is no significant delay in transit of barium into the stomach when drinking in an upright position. No hiatus hernia is present. 49 seconds of fluoroscopy time was used. IMPRESSION: Small mucosal web in the upper cervical esophagus Tertiary contractions due to poor motility in the thoracic esophagus IMPRESSION: Interpreted and Authenticated by: Fabio Ferro 01/05/21
[2021-01-05] MEDS: ATORVASTATIN 20 MG TABLET PO SCH (20:34)
[2021-01-05] MEDS ORDERED: MONTELUKAST 10 MG TABLET PO SCH (21:00)
[2021-01-05] MEDS ORDERED: PROPRANOLOL 10 MG TABLET PO SCH (21:00)
[2021-01-06] MEDS: 0.9 % SODIUM CHLORIDE 10 ML SYRINGE IV SCH (05:44)
[2021-01-06] MEDS: FLUoxetine HCL 20 MG CAPSULE PO SCH (09:01)
[2021-01-06] MEDS: LOSARTAN 50 MG TABLET PO SCH (09:01)
[2021-01-06] MEDS: PANTOPRAZOLE 40 MG TABLET PO SCH (09:01)
[2021-01-06] MEDS: GABAPENTIN 100 MG CAPSULE PO SCH (09:01)
[2021-01-06] MEDS: OXYBUTYNIN CHLORIDE 5 MG TABLET PO SCH (09:01)
[2021-01-06] MEDS: ASPIRIN 81 MG TAB.CHEW PO SCH ×2 (09:01→09:03)
[2021-01-06] MEDS: ENOXAPARIN 40 MG/0.4 ML SYRINGE SQ SCH (09:02)
[2021-01-06] MEDS: DOCUSATE SODIUM 100 MG CAPSULE PO SCH (09:02)
[2021-01-06] MEDS: ALLOPURINOL 300 MG TABLET PO SCH (09:02)
[2021-01-06] MEDS: LEVOFLOXACIN 750 MG/150 ML BAG IV SCH (09:47)
[2021-01-06] MEDS ORDERED: PROPRANOLOL 40 MG TABLET PO STA (12:48)
--- NOTE | 2021-01-20 09:13 | EKG ---
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
--- NOTE | 2021-02-03 13:15 | EKG ---
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
== END 2021-01-06 13:40 | DRG 92 ==
LOC: ED 09:33 → ICU 16:55
PROVIDERS: ADMIT Internal Medicine; ATTEND Internal Medicine